=== PATIENT | female | born 1955 | race Caucasian/White ===

== ENCOUNTER 2018-01-25 12:06 | Emergency (ER) | payer BC ==
[2018-01-25] MEDS: KETOROLAC 30 MG INJ IM (12:30)
== END 2018-01-25 13:46 | disposition home or self-care (01) ==
LOC: FTE 12:06
DX: M25.561 Pain in right knee (principal); I10 Essential (primary) hypertension; E11.9 Type 2 diabetes mellitus without complications
CPT/HCPCS: 73562; 93971; 96372; 99285-25